=== PATIENT | male | born 1985 | race African-American/Black ===

== ENCOUNTER 2021-04-06 08:33 | Inpatient (IN) | payer OTHER ==
[~2021-04-06] VITALS: Ht 185.4 cm; Wt 171.7 kg
[2021-04-06] MEDS ORDERED: LEVETIRACETAM 500MG TABLET PO ONE (09:00)
[2021-04-06] MEDS ORDERED: SODIUM CHLORIDE 0.9% 1,000 ML IV ONE (09:00)
[2021-04-06] MEDS ORDERED: LEVETIRACETAM 1000MG PREMIX 100 ML IV ONE (09:00)
[2021-04-06 09:07] LABS: BASOPHILS % 0.4 % (0.0-2.0); EOSINOPHILS % 1.3 % (0.0-5.0); HEMATOCRIT. 44.3 % (42.0-52.0); HEMOGLOBIN. 13.9 g/dL (14.0-18.0); LYMPHOCYTES % 15.4 % (20.0-50.0); MEAN CORPUSCULAR HEMOGLOBIN 28.6 pg (28.0-32.0); MEAN PLATELET VOLUME 8.8 fl (7.4-10.4); MONOCYTES % 5.7 % (2.0-8.0); NEUTROPHILS % 77.2 % (40.0-76.0); PLATELET 360 x1000/uL (130-400); RED BLOOD CELL COUNT 4.87 mill/uL (4.7-6.1); RED CELL DISTRIBUTION WIDTH 14.1 % (11.6-14.6)
[2021-04-06 09:15] LABS: CHLORIDE 107 mEq/L (98-107)
[2021-04-06 09:19] LABS: ETHANOL BLOOD < 10 mg/dL
[2021-04-06] MEDS ORDERED: LORAZEPAM 2MG/ML CPJ IV ONE (09:30)
[2021-04-06] MEDS ORDERED: CLONIDINE 0.1MG TABLET PO PRN (12:15)
[2021-04-06] MEDS ORDERED: LORAZEPAM 2MG/ML CPJ IV PRN (12:15)
[2021-04-06] MEDS ORDERED: DIPHENHYDRAMINE 50MG/ML VIAL IV PRN (12:15)
[2021-04-06] MEDS ORDERED: ACETAMINOPHEN 325MG TABLET PO PRN (12:15)
[2021-04-06] MEDS ORDERED: ONDANSETRON HCL 4MG/2ML INJ IV PRN (12:15)
[2021-04-06] MEDS ORDERED: LEVETIRACETAM 500MG PREMIX 100 ML IV SCH (14:06)
[2021-04-06] MEDS ORDERED: ONDANSETRON HCL 4MG/2ML INJ IV ONE (15:45)
[2021-04-06 16:00] VITALS: BP 155/90
[2021-04-06 16:56] VITALS: BP 155/90
[2021-04-06] MEDS ORDERED: LEVE250T2 PO (19:28)
[2021-04-06] MEDS ORDERED: TOPI100T37 PO (19:28)
[2021-04-06 20:00] VITALS: BP 180/99
[2021-04-06] MEDS: TOPIRAMATE 100MG TABLET PO SCH (20:32)
[2021-04-06] MEDS: LEVETIRACETAM 500MG PREMIX 100 ML IV SCH (20:32)
[2021-04-07] VITALS: BP 144/83
[2021-04-07 04:00] VITALS: BP 119/52
[2021-04-07 07:00] LABS: BASOPHILS % 0.4 % (0.0-2.0); EOSINOPHILS % 0.2 % (0.0-5.0); HEMATOCRIT. 42.1 % (42.0-52.0); HEMOGLOBIN. 13.7 g/dL (14.0-18.0); LYMPHOCYTES % 9.7 % (20.0-50.0); MEAN CORPUSCULAR HEMOGLOBIN 28.4 pg (28.0-32.0); MEAN CORPUSCULAR VOLUME 87.6 fL (80.0-94.0); MONOCYTES % 7.3 % (2.0-8.0); NEUTROPHILS % 82.4 % (40.0-76.0); PLATELET 312 x1000/uL (130-400); RED CELL DISTRIBUTION WIDTH 13.8 % (11.6-14.6)
[2021-04-07 07:05] LABS: CHLORIDE 110 mEq/L (98-107)
[2021-04-07 07:12] LABS: LDL CHOLESTEROL 109 mg/dL (5-100)
[2021-04-07 07:13] LABS: HDL CHOLESTEROL 47 mg/dL (40-59)
[2021-04-07 08:00] VITALS: BP 147/77
[2021-04-07 09:16] LABS: CLARITY URINE CLEAR (CLEAR); COLOR URINE YELLOW (YELLOW); KETONES URINE NEGATIVE (NEGATIVE); LEUKOCYTE ESTERASE URINE NEGATIVE (NEGATIVE); NITRITE URINE NEGATIVE (NEGATIVE); OCCULT BLOOD URINE NEGATIVE (NEGATIVE); PH URINE 5.5 (4.5-8.0); PROTEIN URINE NEGATIVE (NEGATIVE); SPECIFIC GRAVITY URINE 1.006 (1.005-1.030); UROBILINOGEN URINE 0.2 E.U./dL (0.2-1.0)
[2021-04-07 09:25] LABS: *AMPHETAMINES SCREEN URINE NEGATIVE (NEGATIVE); *BARBITURATES SCREEN URINE NEGATIVE (NEGATIVE); *BENZODIAZEPINES SCREEN URINE NEGATIVE (NEGATIVE); *COCAINE SCREEN URINE NEGATIVE (NEGATIVE); METHADONE URINE SCREEN NEGATIVE (NEGATIVE)
[2021-04-07 09:26] LABS: CANNABINOID URINE SCREEN PRESUMTIVE POSITIVE (NEGATIVE); OPIATES URINE SCREEN NEGATIVE (NEGATIVE); PHENCYCLIDINE URINE SCREEN NEGATIVE (NEGATIVE)
[2021-04-07] MEDS: TOPIRAMATE 100MG TABLET PO SCH (09:38)
[2021-04-07] MEDS: LEVETIRACETAM 500MG PREMIX 100 ML IV SCH (09:39)
[2021-04-07 10:02] VITALS: BP 147/77
== END 2021-04-07 10:33 | disposition home or self-care (01) | DRG 101 ==
LOC: ER 08:33 → 7EST 10:54 → EDBEDREQ 11:03 → EDBEDREQSVC 12:37
PROVIDERS: ADMIT Internal Medicine; ATTEND Internal Medicine
DX: G40.909 Epilepsy, unspecified, not intractable, without status epilepticus (principal); G47.30 Sleep apnea, unspecified; E11.65 Type 2 diabetes mellitus with hyperglycemia
CPT/HCPCS: 36415; 80053; 80061; 80201; 80305; 80320; 81003; 82962; 84443; 85025; 93005; 93970; 99291; J1953; J2060; J2405; J7030; J7040; G0480

== ENCOUNTER 2021-06-17 11:08 | Emergency (ER) | payer OTHER ==
[~2021-06-17] VITALS: Ht 175.3 cm; Wt 140.0 kg
[~2021-06-17 11:08] MED LIST: LEVE250T2 PO; TOPI100T37 PO
[2021-06-17] MEDS ORDERED: LEVETIRACETAM 1000MG PREMIX 100 ML IV ONE (11:30)
[2021-06-17 12:43] LABS: CHLORIDE 108 mEq/L (98-107)
[2021-06-17 12:48] LABS: ETHANOL BLOOD < 10 mg/dL
[2021-06-17] MEDS ORDERED: LEVETIRACETAM 500MG TABLET PO ONE (13:45)
[2021-06-17 14:02] VITALS: BP 160/95
== END 2021-06-17 14:05 | disposition home or self-care (01) ==
LOC: ER 12:11
DX: G93.40 Encephalopathy, unspecified (principal); R56.9 Unspecified convulsions; F10.10 Alcohol abuse, uncomplicated; Y90.0 Blood alcohol level of less than 20 mg/100 ml
CPT/HCPCS: 36415; 80053; 80320; 93005; 99284; G0480